=== PATIENT | female | born 2000 | race Caucasian/White ===

== ENCOUNTER 2021-02-19 19:25 | Emergency (ER) | payer OTHER ==
[2021-02-19 21:22] LABS: BASOPHIL 0.3 % (0-2); EOSINOPHIL 0.5 % (0-5); HCT 34.7 % (37.0-47.0); HGB 11.7 g/dl (12.5-16.0); LYMPHOCYTE 5.8 % (15-48); MCH 29.4 pg (25.0-31.0); MCHC 33.7 g/dL (32.0-36.0); MCV 87.2 fL (78.0-100.0); MPV 11.4 fL (6.0-9.5); NEUTROPHIL 87.1 % (41-80); NRBC 0; PLT 216 K/uL (150-400); RBC 3.98 M/uL (4.20-5.40); RDW 14.1 % (11.5-14.0); WBC 9.6 K/uL (4.0-10.5)
[2021-02-19 21:37] LABS: BUN/CREAT RATIO (CALC) 16.3 RATIO; CREATININE 0.49 mg/dL (0.51-0.95); POTASSIUM 3.8 mmol/L (3.5-5.1)
[2021-02-19] MEDS ORDERED: ZPAK PO (23:03)
== END 2021-02-19 23:10 | disposition home or self-care (01) ==
LOC: FER 19:25
PROVIDERS: Nurse Practitioner Family
DX: J06.9 Acute upper respiratory infection, unspecified (principal); I10 Essential (primary) hypertension; J45.909 Unspecified asthma, uncomplicated; Z88.0 Allergy status to penicillin; Z79.82 Long term (current) use of aspirin; Z20.822 Contact with and (suspected) exposure to COVID-19
CPT/HCPCS: 36415; 80048; 85025; J2405; J7030; U0002

== ENCOUNTER 2021-06-30 18:29 | Emergency (ER) | payer OTHER ==
[~2021-06-30 18:29] MED LIST: ZPAK PO
[2021-06-30 20:04] LABS: INFLUENZA A NAA NEGATIVE (NEGATIVE)
[2021-06-30 20:09] LABS: CORONAVIRUS 2019 SARS-COV-2 POSITIVE (NEGATIVE)
== END 2021-06-30 20:45 | disposition home or self-care (01) ==
LOC: FER 18:29
PROVIDERS: Nurse Practitioner Family
DX: O98.513 Other viral diseases complicating pregnancy, third trimester (principal); O99.513 Diseases of the respiratory system complicating pregnancy, third trimester; U07.1 COVID-19; J45.909 Unspecified asthma, uncomplicated; Z88.0 Allergy status to penicillin; Z88.6 Allergy status to analgesic agent; Z79.899 Other long term (current) drug therapy
CPT/HCPCS: 87880; 99283; U0002

== ENCOUNTER 2021-08-17 01:02 | Day surgery (SDC) | payer OTHER ==
[~2021-08-17] VITALS: Ht 165.1 cm; Wt 63.5 kg
[2021-08-17 02:21] LABS: BASOPHIL 0.3 % (0-2); EOSINOPHIL 1.6 % (0-5); HCT 34.3 % (37.0-47.0); HGB 10.9 g/dl (12.5-16.0); LYMPHOCYTE 11.2 % (15-48); MCH 25.5 pg (25.0-31.0); MCHC 31.8 g/dL (32.0-36.0); MCV 80.3 fL (78.0-100.0); MONOCYTE 4.9 % (0-12); MPV 10.8 fL (6.0-9.5); NEUTROPHIL 81.6 % (41-80); NRBC 0; PLT 266 K/uL (150-400); RBC 4.27 M/uL (4.20-5.40); RDW 16.4 % (11.5-14.0); WBC 13.5 K/uL (4.0-10.5)
[2021-08-17 02:39] LABS: BILIRUBIN NEGATIVE (NEGATIVE); BLOOD NEGATIVE Ery/uL (NEGATIVE); GLUCOSE (U) NORMAL (NORMAL); LEUKOCYTES 2+ Leu/uL (NEGATIVE); NITRITE NEGATIVE (NEGATIVE); PROTEIN NEGATIVE (NEGATIVE); pH 7.5 (5.0-9.0)
[2021-08-17 02:41] LABS: ALBUMIN 3.7 g/dL (3.4-5.0); BILIRUBIN - TOTAL 0.3 mg/dL (0.2-1.0); BUN/CREAT RATIO (CALC) 12.5 RATIO; CREATININE 0.8 mg/dL (0.51-0.95); GLOBULIN (CALCULATION) 3.1 g/dL; POTASSIUM 3.1 mmol/L (3.5-5.1); TOTAL PROTEIN 6.8 g/dL (6.4-8.2)
[2021-08-17 02:45] LABS: CLARITY SLIGHTLY HAZY (CLEAR); COLOR STRAW (YELLOW)
[2021-08-17 02:46] LABS: BACTERIA 1+
[2021-08-17] MEDS ORDERED: VENTOLIN HFA IN18 GM INH (08:02)
[2021-08-17] MEDS ORDERED: PERCOCET 5-3251 EACH PO (15:36)
[2021-08-17] MEDS ORDERED: LEVOFLOXACIN500 MG PO (15:36)
[2021-08-17] MEDS ORDERED: LACTINEX1 EACH PO (15:36)
[2021-08-17] MEDS ORDERED: METRONIDAZOLE500 MG PO (15:36)
[2021-08-17] MEDS ORDERED: MIRALAX17 GM PO (15:38)
== END 2021-08-17 17:04 | disposition home or self-care (01) ==
LOC: FER 01:02 → FOR 06:24 → FMS 10:36 → FOR 17:04
PROVIDERS: Emergency Medicine
DX: K35.80 Unspecified acute appendicitis (principal); J45.909 Unspecified asthma, uncomplicated; Z88.6 Allergy status to analgesic agent; Z88.0 Allergy status to penicillin; Z20.822 Contact with and (suspected) exposure to COVID-19
CPT/HCPCS: 36415; 80053; 81001; 83690; 84145; 84703; 85025; 94010; J1170; J1956; J2250; J2405; J2704; J3010; J7030; J7120; Q9967; U0002

== ENCOUNTER 2021-10-03 16:21 | Emergency (ER) | payer OTHER ==
[~2021-10-03 16:21] MED LIST changes: +LACTINEX1 EACH PO; +LEVOFLOXACIN500 MG PO; +METRONIDAZOLE500 MG PO; +MIRALAX17 GM PO; +PERCOCET 5-3251 EACH PO; +VENTOLIN HFA IN18 GM INH
== END 2021-10-03 17:42 | disposition home or self-care (01) ==
LOC: FER 16:21
DX: S93.601A Unspecified sprain of right foot, initial encounter (principal); Z88.0 Allergy status to penicillin; Z88.6 Allergy status to analgesic agent; W28.XXXA Contact with powered lawn mower, initial encounter; Z28.310 Unvaccinated for COVID-19
CPT/HCPCS: 73620

== ENCOUNTER 2021-10-31 13:46 | Emergency (ER) | payer OTHER ==
[2021-10-31 15:31] LABS: CORONAVIRUS 2019 SARS-COV-2 NEGATIVE (NEGATIVE); INFLUENZA A NAA NEGATIVE (NEGATIVE)
[2021-10-31] MEDS ORDERED: MEDROL 4MG DOSEP4 MG PO (16:03)
== END 2021-10-31 16:10 | disposition home or self-care (01) ==
LOC: FER 13:46
PROVIDERS: Nurse Practitioner Family
DX: J01.90 Acute sinusitis, unspecified (principal); Z20.822 Contact with and (suspected) exposure to COVID-19; Z88.0 Allergy status to penicillin; Z88.6 Allergy status to analgesic agent; Z28.310 Unvaccinated for COVID-19
CPT/HCPCS: 99283; U0002

== ENCOUNTER 2021-12-01 13:12 | Emergency (ER) | payer OTHER ==
[~2021-12-01 13:12] MED LIST changes: +MEDROL 4MG DOSEP4 MG PO
== END 2021-12-01 16:35 | disposition home or self-care (01) ==
LOC: FER 13:12
DX: S46.912A Strain of unspecified muscle, fascia and tendon at shoulder and upper arm level, left arm, initial encounter (principal); Z28.310 Unvaccinated for COVID-19; Z87.891 Personal history of nicotine dependence; Z88.0 Allergy status to penicillin; Z88.5 Allergy status to narcotic agent; Z88.6 Allergy status to analgesic agent; W19.XXXA Unspecified fall, initial encounter; Y92.009 Unspecified place in unspecified non-institutional (private) residence as the place of occurrence of the external cause
CPT/HCPCS: 73030